=== PATIENT | female | born 1955 | race Caucasian/White ===

== ENCOUNTER 2016-06-06 22:23 | Emergency (ER) | payer SELFPAY ==
[2016-06-06 22:41] VITALS: TEMP 98; BMI 27.5
--- NOTE | 2016-06-07 00:35 | EDPRACDOC ---
- General Information Chief Complaint: Knee Pain Stated Complaint: KNEE PAIN Time Seen by Provider: 06/07/16 00:12 Information Source: Patient Home Medications: Home Medications Lisinopril 20 mg PO DAILY 07/04/13 Trazodone HCl 150 mg PO HS 07/04/13 Metoprolol Tartrate [Lopressor] 25 mg PO BID #60 tablet 03/24/15 Promethazine [Phenergan] 25 mg PO Q6-8H PRN #10 tab 03/24/15 Hydrocodone/Acetaminophen [Lortab 5-325 mg Tablet] 1 each PO Q6 PRN #10 tablet 06/07/16 Prednisone [Deltasone, Orasone] 40 mg PO DAILY 5 Days 06/07/16 Allergies/Adverse Reactions: Allergies Allergy/AdvReac Type Severity Reaction Status Date / Time codeine Allergy Hives* Verified 06/06/16 22:41 Penicillins Allergy Hives* Verified 06/06/16 22:41 - History of Present Illness Onset: Last night HPI: C/o left knee pain, swelling after using step ladder last evening. Hx of multiple surgeries on left knee 20 yrs ago. Pt ambulates with pain, cannot straighten left knee, and has fallen from knee not being able to bear weight effectively. Knee Problem Location: Left Mechanism: Reports: Other (up and dowen step ladder) Circumstances: Reports: Work-related Relevant History: Reports: Knee Operation (20 yrs ago) Able to Bear Weight: Limited Pain Severity: Reports: Moderate Associated Signs & Symptoms: Reports: Swelling, Leg Pain ED Past Medical History - History Reviewed Yes Nurses notes reviewed and agree except as marked - Patient Medical History Cardiac History: Reports: Hypertension Psychological History: Reports: Anxiety Systemic History: Reports: Cancer (cervical, uterine) Surgical History: Reports: Hysterectomy, Other (Bladder tack x 2) - Social Medical History Smoking Status: Heavy tobacco smoker (5 or more cigarettes/day or daily pipe/ cigar) EDM Review of Systems - Review of Systems ROS Negative Except as Marked: Yes All systems reviewed and were negative except as marked Musculoskeletal: Knee (left) - Physical Exam Constitutional: Alert Oriented to: Time, Person, Place Last recorded Vital Signs: Last Vital Signs Temp 98 F 06/06/16 22:35 Pulse 77 06/06/16 22:35 Resp 20 06/06/16 22:35 BP 210/84 H 06/06/16 22:35 Pulse Ox 96 06/06/16 22:35 Oxygen Pulse Oxygen Saturation 96 O2 Device Room Air Oxygen Flow Rate Fraction of Inspired Oxygen ( FIO2) - HEENT Head: Normal Eye Exam: negative: Conjunctival Injection, Scleral Icterus Oropharynx: Drooling TMJ: Normal Nose: No Symptoms Reported Neck: Normal - Respiratory/Cardiovascular Respiratory: Normal - CTA Cardiovascular: Normal - GI Tenderness: Non tender - Musculoskeletal Back: Normal Extremities: Pedal Pulse, Radial Pulse. negative: Pedal Edema - Integumentary Skin: Normal - Neurologic Mood Description: Normal Thought: Coherent Perception: Normal Neurologic Comment: pulses, sensation and motor fxn intact distal to left knee. ED Knee Problem Phys Exam - Musculoskeletal Knee: Swelling, Limited ROM, Moderate Tenderness Thigh: Normal Lower Leg: Normal Distal Function/Circulation: Normal - Diagnostic Imaging Knee Image interpreted by: Radiologist EXAM: LEFT KNEE - COMPLETE 4+ VIEW COMPARISON: None. FINDINGS: There is no acute fracture or dislocation. There is mild osteoarthritic changes with narrowing of the medial compartment. The bones are mildly osteopenic. No joint effusion. IMPRESSION: No fracture or dislocation. Electronically Signed By: Josafat Pat M.D. On: 06/07/2016 01:32 Decision Time to Discharge: 02:08 - Departure Disposition: Home Condition: Stable Final Diagnosis: Left knee pain Qualifiers: Chronicity: acute Qualified Code(s): M25.562 - Pain in left knee Instructions: RICE: Routine Care for Injuries, Knee Sprain (ED) Education/Counseling Given To: Patient Education/Counseling Given Regarding: Diagnosis, Treatment, Prognosis, Follow Up Referrals: Jj Farooq MD [Primary Care Provider] - One Week Prescriptions: Hydrocodone/Acetaminophen [Lortab 5-325 mg Tablet] 1 each PO Q6 PRN #10 tablet PRN Reason: Pain Prednisone [Deltasone, Orasone] 40 mg PO DAILY 5 Days Forms: Excuse Note Additional Instructions: Follow up with primary care. Take lortab for pain. take prednisone for inflammtion. Return to ED for any new or worsening symptoms.
[2016-06-07] MEDS ORDERED: METOPROLOL TARTRATE 25 MG TAB PO ONE (01:33)
--- NOTE | 2016-06-07 01:35 | DIRPT ---
CLINICAL DATA: 60-year-old female with left knee pain. No injury. EXAM: LEFT KNEE - COMPLETE 4+ VIEW COMPARISON: None. FINDINGS: There is no acute fracture or dislocation. There is mild osteoarthritic changes with narrowing of the medial compartment. The bones are mildly osteopenic. No joint effusion. IMPRESSION: No fracture or dislocation. Electronically Signed By: Josafat Pat M.D. On: 06/07/2016 01:32
[2016-06-07] MEDS ORDERED: IBUPROFEN 600 MG TAB PO ONE (01:51)
[2016-06-07] MEDS ORDERED: HYDROCODONE 5 MG/ACETAMIN 325 MG TAB PO ONE (02:11)
[2016-06-07 02:55] VITALS: BP 178/88; PULSE 68
== END 2016-06-07 02:57 | disposition home or self-care (01) ==
LOC: ED 22:23
DX: M25.562 Pain in left knee (principal)
CPT/HCPCS: 73564; 99283; J3490